=== PATIENT | male | born 1985 | race Caucasian/White ===

== ENCOUNTER 2024-11-12 08:11 | Emergency (ER) | payer OTHER, MEDICAID, SELFPAY ==
--- NOTE | 2024-11-12 08:18 | EKG_ITS ---
[facility] Test Date: 2024-11-12 Pat Name: LIZZY ARIAS Department: Room: - Gender: Male [employer] Relief: : 1985 Requested By: Devora Holland ([facility]) Order Number: [id number] Reading MD: Devora Holland ([facility]) Measurements Intervals [place] Rate: 90 P: 71 NE: 138 QRS: 70 QRSD: 98 T: 20 QT: 346 QTc: 425 Interpretive Statements SINUS RHYTHM POSSIBLE RIGHT ATRIAL ENLARGEMENT [0.25mV P-WAVE] POSSIBLE LEFT ATRIAL ENLARGEMENT [-0.1mV P-WAVE IN V1/V2] NONSPECIFIC T-WAVE ABNORMALITY Compared to ECG 11/12/2023 17:12:57 No significant changes /[id number]/S0/[id number].pdf
[2024-11-12 08:23] VITALS: BP 146/101; PULSE 99; RESP 20; TEMP 36.6; O2SAT 97; BMI 28.4
--- NOTE | 2024-11-12 08:41 | XR_ITS ---
Examination: PA lateral chest 2 views Technique: Upright PA lateral chest 2 views Exam date and time: November 12, 2024 0810 hrs. Comparison December 25, 2023 Indications: Chest pain today. Findings: Normal heart size. The lungs are clear. The osseous structures are intact Impression: No active disease
--- NOTE | 2024-11-12 08:41 | XR_ITS ---
Examination: Cervical spine 3 views Technique one AP lateral coned AP odontoid cervical spine 3 views Exam date and time: October 15, 2024 0809 hrs. Indications: Onset neck pain today. Findings: Straightening normal cervical lordosis. No cervical fracture. Intact odontoid. Minimal disc narrowing C6-C7 Impression: Minimal disc narrowing C6-C7
--- NOTE | 2024-11-12 08:44 | PD.EDRME ---
Rapid Medical Screening Exam RME Arrival date/time: 11/12/24 08:11 39-year-old male history of hypertension presents with complaints of neck pain that radiates into his chest for 1 hour. I have greeted and performed a focused initial assessment of this patient. Initial appropriate labs ordered at this time. A comprehensive ED assessment and evaluation of the patient and analysis of all test and completion of medical decision making process will be conducted by additional ED provider. Chief Complaint: Neck Pain/Injury Time Seen by Provider: 11/12/24 08:27 Vital signs: Vital Signs Temperature 97.9 F 11/12/24 08:23 Pulse Rate 99 11/12/24 08:23 Respiratory Rate 20 11/12/24 08:23 Blood Pressure 146/101 H 11/12/24 08:23 Pulse Oximetry (%) 97 11/12/24 08:23 Oxygen Delivery Method Room Air 11/12/24 08:23
[2024-11-12] MEDS: IBUPROFEN TAB 400 MG TABLET 800 MG PO (08:58)
[2024-11-12] MEDS: CYCLObenzaPRINE 5 MG TABLET PO (08:58)
[2024-11-12 09:17] LABS: Basophils % (Auto) 1 % (0-2.5); Eosinophils # (Auto) 0.2 Thou/mm3 (0.0-0.5); Eosinophils % (Auto) 2 % (0-10); Hemoglobin 14.9 g/dL (13.5-16.0); Immature Granulocytes % (Auto) 0 % (0-0); Immature Granulocytes Auto 0.01 Thou/mm3 (0.00-0.00); Lymphocytes # (Auto) 1.6 Thou/mm3 (1.0-4.8); Lymphocytes % (Auto) 25 % (10-50); Mean Corpuscular HGB Conc 34.7 g/dl (31.0-37.0); Mean Corpuscular Hemoglobin 29.7 pg (25.0-35.0); Mean Corpuscular Volume 86 fL (80-100); Monocytes # (Auto) 0.5 Thou/mm3 (0.0-0.8); Monocytes % (Auto) 7 % (0-12); Neutrophils # (Auto) 4.2 Thou/mm3 (1.8-7.7); Neutrophils % (Auto) 65 % (37-80); Nucleated Red Blood Cell % 0 /100 WBC (0); Platelet Count 220 Thou/mm3 (140-440); RDW Standard Deviation 39.6 fL (35.1-43.9); Red Blood Count 5.01 Miln/mm3 (4.50-5.90); White Blood Count 6.5 Thou/mm3 (3.8-10.6)
[2024-11-12 09:34] LABS: Partial Thromboplastin Time 28.2 Seconds (22.0-36.0); Prothrombin Time 10.6 Seconds (9.0-12.2)
[2024-11-12 09:35] LABS: B-Type Natriuretic Peptide 21 pg/mL (0-100)
[2024-11-12 09:38] LABS: Alanine Aminotransferase 31 U/L (10-49); Albumin, Serum 4.5 gm/dL (3.5-5.0); Albumin/Globulin Ratio 1.6 (1.2-2.2); Alkaline Phosphatase 76 U/L (46-116); Anion Gap 7 (7-16); Aspartate Amino Transferase 20 U/L (0-34); BUN/Creatinine Ratio 10 Ratio (12-20); Bilirubin,Total 0.4 mg/dL (0.3-1.2); Blood Urea Nitrogen 9 mg/dL (9-23); Calcium 9.7 mg/dL (8.3-10.6); Calcium (Corrected) 9.7 mg/dL (8.5-10.1); Carbon Dioxide 26.8 mMol/L (20.0-31.0); Chloride 104 mMol/L (98-107); Creatinine (Component) 0.9 mg/dL (0.6-1.3); Estimated Creatinine Clearance 128.1 mL/min (>60); Globulin 2.8 gm/dL (2.3-3.5); Glucose 104 mg/dL (74-106); Lipase 30 U/L (12-53); Osmolality,Calculated 274 (275-295); Potassium 4.2 mMol/L (3.4-5.1); Sodium 138 mMol/L (136-145); Total Protein 7.3 gm/dL (5.7-8.2); Troponin I < 0.002 ng/mL (0.0-0.045); eGFR > 60 See Note
--- NOTE | 2024-11-12 10:00 | PC.NURSE ---
Called xray for results, tech will notify radiologist
--- NOTE | 2024-11-12 10:37 | PC.NURSE ---
called xray for results, tech will notify radiologist
--- NOTE | 2024-11-12 11:43 | PRELIM_ITS ---
Radiographs of the chest (2 views). November 12, 2024 0809 hours Clinical history: chest pain Comparison: No prior study is available for comparison. Findings: The heart, mediastinum and pulmonary abraham are unremarkable. The lungs are clear. There is no pleural effusion. The bony thorax is unremarkable. Impression: No acute cardiopulmonary process. Report Electronically Signed By: Aly Moreira 11/12/2024 11:43:18 AM [EST]
--- NOTE | 2024-11-12 11:44 | PRELIM_ITS ---
Radiographs of the cervical spine (3 views). November 12, 2024 0809 hours Clinical history: neck pain Comparison: No prior study is available for comparison. Findings: There is no evidence of fracture or subluxation. The spine is normal in configuration and alignment. The vertebrae and intervertebral disc spaces are normal. The atlantoaxial joint is unremarkable. There is no prevertebral or paravertebral soft tissue abnormality. Impression: No evidence of fracture or subluxation. Report Electronically Signed By: Aly Moreira 11/12/2024 11:44:01 AM [EST]
--- NOTE | 2024-11-12 12:22 | PC.NURSE ---
Patient signed out AMA states he has been here over 4 hours waiting on results and he is tired of waiting, patient educated on risks of leaving, AMA form signed and placed on chart.
== END 2024-11-12 12:22 | disposition left against medical advice (07) ==
PROVIDERS: Nurse Practitioner Primary Care; Emergency Provider Emergency Medicine; PCP Physician Assistant
DX: M54.2 Cervicalgia (principal); I10 Essential (primary) hypertension; Z53.29 Procedure and treatment not carried out because of patient's decision for other reasons
CPT/HCPCS: 36415; 71046; 72040; 80053; 83690; 83880; 84484; 85025; 85610; 85730; 99281; A9270